=== PATIENT | male | born 1960 | race African-American/Black ===

== ENCOUNTER 2019-06-24 11:35 | Emergency (ER) | payer MEDICARE, OTHER ==
[~2019-06-24] VITALS: Ht 175.3 cm; Wt 140.6 kg
--- NOTE | 2019-06-24 11:50 | NUR ---
ED Nurse Note: my lower back is hurting me for awhile. pt relates he used to receive injections for pain but stopped those 2 years ago. using cane to ambulate.
[2019-06-24 11:57] VITALS: BP 149/95
[2019-06-24] MEDS ORDERED: Methocarbamol 750mg tab ORAL ONE (12:30)
[2019-06-24] MEDS ORDERED: Ketorolac 30mg Inj IM ONE (12:30)
--- NOTE | 2019-06-24 12:34 | Emergency Room Report ---
History of Present Illness General Chief Complaint: Back Pain-No Injury Source: Patient (Venus Wagoner N. P.AShabbir) Present Illness HPI 59-year-old male presents with lower back pain for the past 2 weeks, worsening in the past 3 days. Patient has chronic back pain from an injury many years ago. He used to get epidural shots often but has not needed them for the past 2 years. Denies any trauma 2 weeks ago when the pain started. Denies any dysuria, hematuria, or fever. Denies any bowel or bladder incontinence. Denies any saddle anesthesia. Able to ambulate with a cane which is his baseline. Patient has been taking extra strength Tylenol with only mild relief. (Venus Wagoner N. P.A.) Allergies: Coded Allergies: No Known Allergies (Unverified , 06/24/19) Patient History Reviewed Nursing Documentation: PMH: Agreed; PSxH: Agreed (Venus Wagoner N. P.A.) Nursing Documentation-PMH Past Medical History: No History, Except For Hx Hypertension: Yes (Venus Wagoner N. P.A.) Review of Systems All Other Systems: negative except mentioned in HPI (Venus Wagoner N. P.A.) Physical Exam Vital Signs Date Time Temp Pulse Resp B/P (MAP) Pulse Ox O2 Delivery O2 Flow Rate FiO2 06/24/19 11:41 98.4 118 24 155/98 (117) 97 Room Air Sp02 EP Interpretation: reviewed, normal General Appearance: normal inspection, well appearing, no apparent distress, alert, GCS 15, non-toxic Neck: normal inspection, full range of motion, supple, thyroid normal, no meningismus, no bony tend Respiratory: chest non-tender, lungs clear, normal breath sounds, no respiratory distress Cardiovascular #1: normal peripheral pulses, regular rate, rhythm Gastrointestinal: normal inspection, normal bowel sounds, non tender, soft, no mass, no organomegaly, no guarding, no rebound Genitourinary: no CVA tenderness, other - No midline tenderness. Bilateral lumbar paraspinal tenderness. No saddle anesthesia. Musculoskeletal: normal inspection, normal range of motion, no calf tenderness , gait/station normal, non-tender Neurologic: alert, motor strength/tone normal, garbage man III-XII nml as tested, oriented x3, sensory intact, speech normal Psychiatric: judgement/insight normal, mood/affect normal Skin: no rash, normal color, warm/dry Lymphatic: no adenopathy (Venus Wagoner N. P.A.) Medical Decision Making PA Attestation Dr. Meza is my supervising physician whom patient management and care has been discussed with. (Venus Wagoner N. P.AShabbir) Diagnostic Impression: Primary Impression: Chronic back pain Qualified Codes: M54.5 - Low back pain; G89.29 - Other chronic pain Additional Impression: UTI (urinary tract infection) Qualified Codes: N39.0 - Urinary tract infection, site not specified ER Course Pt. presents to the ED c/o chronic back pain worsening in the past few days. Ddx considered but are not limited to herniated disc, cauda equina syndrome, conus medullaris, UTI, pyelonephritis, nephrolithiasis, fracture, strain, muscle spasm, discitis, abscess. Vital signs: are WNL, pt. is afebrile H&PE are most consistent with acute on chronic back pain. ORDERS: Urinalysis shows possible UTI. ED INTERVENTIONS: Given IM Toradol and p.o. Robaxin. DISCHARGE: At this time pt. is stable for d/c to home. Doubt cauda equina syndrome, spinal abscess, or other emergent etiology given no incontinence, saddle anesthesia, CVA tenderness, midline tenderness. Patient reports feeling much better with the medications. Urinalysis shows possible UTI therefore patient will be given Keflex along with naproxen and Flexeril. Will provide printed patient care instructions, and any necessary prescriptions. Care plan and follow up instructions have been discussed with the patient prior to discharge. Laboratory Tests Test 06/24/19 12:26 Urine Color Yellow Urine Appearance Clear Urine pH 5 (4.5-8.0) Urine Specific Kohler 1.030 (1.005-1.035) Urine Protein 3+ (NEGATIVE) H Urine Glucose (UA) Negative (NEGATIVE) Urine Ketones 3+ (NEGATIVE) H Urine Blood 1+ (NEGATIVE) H Urine Nitrite Negative (NEGATIVE) Urine Bilirubin 1+ (NEGATIVE) H Urine Ictotest Negative (NEGATIVE) Urine Urobilinogen 4 MG/DL (0.0-1.0) H Urine Leukocyte Esterase 1+ (NEGATIVE) H Urine RBC 0-2 /HPF (0 - 0) H Urine WBC 2-4 /HPF (0 - 0) Urine Squamous Epithelial Cells Few /LPF (NONE/OCC) Urine Bacteria Few /HPF (NONE) Urine Mucus Moderate /LPF (NONE/OCC) H (Venus Wagoner N. P.A.) Last Vital Signs Date Time Temp Pulse Resp B/P (MAP) Pulse Ox O2 Delivery O2 Flow Rate FiO2 06/24/19 11:57 98.4 106 22 149/95 98 Room Air (Venus Wagoner N. P.A.) Disposition: HOME, SELF-CARE Condition: Stable Scripts Cephalexin* (KEFLEX*) 500 Mg Capsule 500 MG ORAL TID for 7 Days, #21 CAP 0 Refills Prov: Venus Wagoner N. P.A. 06/24/19 Cyclobenzaprine Hcl* (FLEXERIL*) 10 Mg Tablet 10 MG ORAL QHS, #15 TAB Prov: Venus Wagoner N. P.A. 06/24/19 Naproxen* (NAPROXEN*) 500 Mg Tablet 500 MG ORAL TWICE A DAY, #30 TAB Prov: Venus Wagoner N. P.A. 06/24/19 Venus Wagoner N. P.AShabbir Jun 24, 2019 12:34 Sarahy Meza M.D. Jul 03, 2019 06:26
[2019-06-24 13:02] LABS: APPEARANCE,URINE CLEAR; BILIRUBIN, URINE 1+ (NEGATIVE); GLUCOSE, URINE (UA) NEGATIVE (NEGATIVE); KETONES,URINE 3+ (NEGATIVE); LEUKOCYTE ESTERASE ,URINE 1+ (NEGATIVE); NITRITE,URINE NEGATIVE (NEGATIVE); PH,URINE 5 (4.5-8.0); PROTEIN,URINE 3+ (NEGATIVE); UROBILINOGEN,URINE 4 MG/DL (0.0-1.0)
[2019-06-24 13:04] LABS: COLOR,URINE YELLOW
[2019-06-24] MEDS ORDERED: NAPROXEN500 M2 ORAL (13:48)
[2019-06-24] MEDS ORDERED: CEPHALEXIN500 MG ORAL (13:48)
[2019-06-24] MEDS ORDERED: CYCLOBENZAPRINE10 MG ORAL (13:48)
[2019-06-24 14:06] VITALS: BP 137/80
--- NOTE | 2019-06-24 14:07 | NUR ---
ER DISCHARGE NOTE: Patient is cleared to be discharged per ERMD, pt is aox4, on room air, with stable vital signs. pt was given dc and prescription instructions, pt was able to verbalize understanding, pt id band removed. pt is able to ambulate with steady gait. pt took all belongings.
== END 2019-06-24 14:07 | disposition home or self-care (01) ==
LOC: EMR 12:50
DX: M54.5 Low back pain (principal); G89.29 Other chronic pain; N39.0 Urinary tract infection, site not specified; I10 Essential (primary) hypertension
CPT/HCPCS: 81003; 96372; 99283; J1885